=== PATIENT | male | born 1945 | race Caucasian/White ===

== ENCOUNTER 2017-07-01 19:41 | Outpatient (CLI) | payer MEDICARE | END 2017-07-01 19:42 | disposition critical access hospital (66) | LOC: EMS 19:41 | PROVIDERS: ATTEND Surgery | DX: T17.920A Food in respiratory tract, part unspecified causing asphyxiation, initial encounter (principal) | CPT/HCPCS: A0425; A0433 ==

== ENCOUNTER 2017-07-01 20:02 | Emergency (ER) | payer MEDICARE ==
[2017-07-01] MEDS ORDERED: SODIUM CHLORIDE 0.9% 1,000 ML IV ONE ×2 (20:17→21:04)
--- NOTE | 2017-07-01 20:28 | ED Physician Documentation ---
PD HPI CPR - Stated complaint Stated Complaint: CHOKING - Chief complaint Chief Complaint: Resp - History obtained from History obtained from: Family, EMS - History of Present Illness Timing - onset: How many minutes ago (30) Timing - onset during: Eating Preceding symptoms: Other (The patient does have history of some dementia but no known heart problems. His says he was eating dinner with hot dog and some [place] fries and she had told him to eat less quickly as he seemed to be eating very fast. She had stepped away for a brief time and just minute or so later heard him fall over. She went into the room and noted a lot of food in his mouth and he was unresponsive. She did clear some [place] fries from his mouth and began CPR and called EMS. The medics found some [place] fries still within his esophagus and upper pharynx. They clear that and were able to intubate him. They found him to be in asystole. IV was started and they did do epinephrine and got a return of a rhythm and give him some atropine which improved the rate. He arrived at the ER with a sinus rhythm but very low blood pressure of approximately 50 systolic. He was not making any respiratory efforts and did not need sedation. He is able to be ventilated easily without any notable airway resistance. There is no respiratory effort and no spontaneous movements.). No: Chest pain, Abdominal pain Contributing factors: Choked. No: CAD, Diabetes Recently seen: Not recently seen Witnessed: Arrest witnessed (within moments of him falling.) Fall: Fell down Bystander CPR: Bystander CPR, Downtime before CPR (1 minute) EMS findings: Apneic, Pulseless, Asystole Treatment TECHNOLOGY EDUCATION INSTRUCTOR: CPR, BVM, Intubated, Epi, Atropine, IV Advanced directive: No advanced directive Review of Systems Unable to obtain: Unresponsive, Other (informoation from ) Constitutional: denies: Fever Cardiac: denies: Chest pain / pressure Respiratory: denies: Dyspnea, Cough GI: denies: Vomiting, Diarrhea Neurologic: reports: Confused (baseline with significant dementia). 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) - Present Medications Home Medications: Ambulatory Orders Medication Instructions Recorded Confirmed Lisinopril 10 mg PO DAILY 05/31/15 03/24/16 Sertraline [Zoloft] 100 mg PO DAILY 09/15/15 03/24/16 Tamsulosin [Flomax] 0.4 mg PO DAILY 09/15/15 03/24/16 Desonide 1 applic TOP DAILY 03/24/16 03/24/16 Fluorouracil 1 applic TOP DAILY 03/24/16 03/24/16 Quetiapine Fumarate 100 mg PO BID 03/24/16 03/24/16 Timolol 0.5% Ophth Drops [Timoptic 1 drop EACHEYE DAILY 03/24/16 03/24/16 0.5% Ophth Drops] Vit D 1,000 units PO DAILY 03/24/16 03/24/16 - Allergies Allergies/Adverse Reactions: Allergies Allergy/AdvReac Type Severity Reaction Status Date / Time No Known Drug Allergies Allergy Verified 05/31/15 18:50 - Social History Does the pt smoke?: No Smoking Status: Never smoker Does the pt drink ETOH?: No Does the pt have substance abuse?: No - POLST Patient has POLST: No PD ED PE NORMAL - Vitals Vital signs reviewed: Yes - General General: Other (intubated without respiratory effort. Lungs sounds congested bilaterally. ) - HEENT HEENT: Atraumatic, Other (pupils fixed and midpoint/dilated. ) - Neck Neck: No JVD - Cardiac Cardiac: RRR (very faint sounds. Bedside U/S showing weak contractions but appear symmetric. No pericardial effusion. FAST did not show any free fluid in abdomen. ), No murmur - Respiratory Respiratory: No: Clear bilaterally (congested sounds bilaterally with bagged ventilation. ) - Abdomen Abdomen: Non distended. No: Normal bowel sounds (absent) - Male Male : Deferred - Rectal Rectal: Deferred - Derm Derm: No: Normal color (dusky color) - Extremities Extremities: No deformity, No edema - Neuro Neuro: No: Alert and oriented X 3 Results - Vitals Vitals: Vital Signs - 24 hr 07/01/17 07/01/17 07/01/17 20:07 20:34 20:35 Heart Rate 76 91 72 Respiratory 20 20 Rate Blood Pressure 76/54 L O2 Saturation 95 100 07/01/17 07/01/17 07/01/17 20:47 20:49 20:54 Heart Rate 93 94 96 Respiratory 20 16 16 Rate Blood Pressure 50/34 L 55/33 L 55/36 L O2 Saturation 100 100 99 07/01/17 07/01/17 07/01/17 21:02 21:06 21:17 Heart Rate 96 98 100 Respiratory 16 16 16 Rate Blood Pressure 63/40 L 66/44 L 63/40 L O2 Saturation 99 99 100 07/01/17 07/01/17 07/01/17 21:32 21:36 21:39 Heart Rate 102 H 105 H 106 H Respiratory 16 16 16 Rate Blood Pressure 66/43 L 62/43 L 71/49 L O2 Saturation 97 96 97 07/01/17 07/01/17 07/01/17 21:44 22:06 22:41 Heart Rate 107 H 109 H 109 H Respiratory 24 16 20 Rate Blood Pressure 76/52 L 81/60 L 85/64 L O2 Saturation 96 96 96 Oxygen O2 Source Mechanical ventilator Oxygen Flow Rate 15 - EKG (time done) 20:19 Rate: Rate (enter#) (67) Rhythm: NSR [place]: Normal Ischemia: ST elevation c/w ischemia (V1 only), ST depression (significant depressions anterolateral leads), T wave inversion Compare to prior EKG: Old EKG unavailable Computer interpretation: Agree with computer - Labs Labs: Laboratory Tests 07/01/17 07/01/17 07/01/17 20:26 20:26 20:26 WBC 6.9 RBC 3.59 L Hgb 11.1 L Hct 34.4 L MCV 95.9 H MCH 30.8 MCHC 32.2 RDW 14.2 Plt Count 239 MPV 7.7 Neut # Not Reportable Lymph # Not Reportable [place] # Not Reportable Eos # Not Reportable Baso # Not Reportable Absolute Nucleated RBC Not Reportable Band Neuts % (Manual) 4 Metamyelocytes % 1 H Neutrophils # (Manual) 4.8 Lymphocytes # (Manual) 1.9 Monocytes # (Manual) 0.1 Eosinophils # (Manual) 0.1 Nucleated RBCs Not Reportable Platelet Estimate NORMAL (130-450,000) RBC Morph Micro Appear NORMAL APPEARANCE Bld Gas Analysis Time Sample Site ABG pH ABG pCO2 ABG pO2 ABG HCO3 ABG Total CO2 ABG O2 Saturation ABG Oximetry Spot Check ABG Base Excess Donta Test Respiration Rate O2 Delivery Device Vent Mode FiO2 Tidal Volume PEEP Pressure Support Vent Sodium 143 Potassium 4.7 Chloride 112 H Carbon Dioxide 17 L Anion Gap 14.0 H BUN 15 Creatinine 1.4 H Estimated GFR (MDRD) 50 L Glucose 223 H Calcium 7.6 L Total Bilirubin 0.4 AST 39 ALT 29 Alkaline Phosphatase 59 Troponin I < 0.04 Total Protein 4.6 L Albumin 2.5 L Globulin 2.0 L Albumin/Globulin Ratio 1.2 Lipase 21 L 07/01/17 20:55 WBC RBC Hgb Hct MCV MCH MCHC RDW Plt Count MPV Neut # Lymph # [place] # Eos # Baso # Absolute Nucleated RBC Band Neuts % (Manual) Metamyelocytes % Neutrophils # (Manual) Lymphocytes # (Manual) Monocytes # (Manual) Eosinophils # (Manual) Nucleated RBCs Platelet Estimate RBC Morph Micro Appear Bld Gas Analysis Time 2108 Sample Site RIGHT RADIAL ABG pH 7.14 L* ABG pCO2 39 ABG pO2 322 H* ABG HCO3 13.1 L ABG Total CO2 14.3 L ABG O2 Saturation 99 H ABG Oximetry Spot Check 99 ABG Base Excess -15.1 L Donta Test POSITIVE Respiration Rate 16 O2 Delivery Device VENTILATOR Vent Mode SIMV FiO2 100.00 Tidal Volume 450 PEEP 5 Pressure Support Vent 10 Sodium Potassium Chloride Carbon Dioxide Anion Gap BUN Creatinine Estimated GFR (MDRD) Glucose Calcium Total Bilirubin AST ALT Alkaline Phosphatase Troponin I Total Protein Albumin Globulin Albumin/Globulin Ratio Lipase - Rads (name of study) chest Radiology: Prelim report reviewed (no focal infiltrates. ETT in adequate position. ) PD MEDICAL DECISION MAKING - ED course Complexity details: reviewed results, re-evaluated patient (Pressure is very low and started on Levophed. Also started cooling in ED. Ventilations continued. I consulted Cardiology at [facility] and had him see EKG. He did not think it prompted interventions. ), considered differential, d/w family (after discussion, the family opted to stop efforts once his son arrives.. Patient clinical outcome is going to be very poor and currently is vent/pressor dependent. ), d/w internal controls consultant (Dr. Gaston, Gas Cutting Machine Operator at [facility], who discusses with me the very poor outcome likelihood for the patient. At that point, the family was still wanting to continue intensive care. He accepted transfer. Soon after, with [employer] about to arrive, the (after talking with son on the phone) changed to not wanting to continue intensive care. The patient is needing pressor support and has not made any respiratory effort on his own. Intubated without needing sedation and has not made any movements. Pupils fixed and dilated. Clinically seems no significant brain function. ECG with marked ischemic changes. So poor clinical outcome. The /family would like to continue treatment here until the son arrives from near the [facility]. Then will presumedly discontinue rescuscitation (Pressors and ventilatory support) with expected soon demise after that. ), other (His son arrived and we all talked about current clinical condition included being ventilator dependent at this time without respiratory effort. Family is still in agreement about stopping interventions. We did not discuss organ donation for live organs as did not seem fitting with their wishes. Ventilator stopped and no respiratory effort. Pressors stopped and I extubated the patient to improve appearance The patient was on heart monitor and it showed a gradual decline in oxygenation and heart rate, with decline to asystole over about 10 minutes. Family at bedside, lights were turned down, and alarms on monitor turned off. Time of 23:54. ) - Critical Care Time(min): 60 Time Includes: Direct patient care, Reassess patient, Document care, Family consult for tx dec, See progress note Data interpretation: Labs, ABG, CXR Departure - Departure Disposition: 20 Clinical Impression: Choking episode, Cardiopulmonary arrest, Anoxic brain injury Condition: Critical Record reviewed to determine appropriate education?: Yes
[2017-07-01 20:35] LABS: RED CELL DISTRIBUTION WIDTH 14.2 % (12.0-15.0)
[2017-07-01 20:38] LABS: BASOPHILS % (AUTO) 0.3 %; EOSINOPHILS % (AUTO) 0.2 %; HCT - HEMATOCRIT 34.4 % (42.0-52.0); HGB - HEMOGLOBIN 11.1 g/dL (14.0-18.0); LYMPHOCYTES % (AUTO) 22.2 %; MEAN CORPUSCULAR HEMOGLOBIN 30.8 pg (27.0-31.0); MEAN CORPUSCULAR HGB CONC 32.2 g/dL (32.0-36.0); MEAN CORPUSCULAR VOLUME 95.9 fL (80.0-94.0); MEAN PLATELET VOLUME 7.7 fL (7.4-11.4); MONOCYTES % (AUTO) 3.7 %; NEUTROPHILS % (AUTO) 73.6 %; RED BLOOD COUNT 3.59 10^6/uL (4.70-6.10); UNCORRECTED WHITE BLOOD COUNT 6.9 x10^3/uL; WHITE BLOOD COUNT 6.9 x10^3/uL (4.8-10.8)
[2017-07-01 20:49] LABS: ALBUMIN/GLOBULIN RATIO 1.2 (1.0-2.2); BILIRUBIN,TOTAL 0.4 mg/dL (0.2-1.0); CALCIUM 7.6 mg/dL (8.5-10.3); CREATININE 1.4 mg/dL (0.6-1.2); POTASSIUM 4.7 mmol/L (3.5-5.0); TOTAL PROTEIN 4.6 g/dL (6.7-8.2)
--- NOTE | 2017-07-01 20:53 | XRAY Preliminary Report ---
Exam: XR Chest 1 View IMPRESSION: 1. ET tube about 6 cm from the carmencita. 2. Distended air filled stomach noted. [facility] SITE ID: [id number]
--- NOTE | 2017-07-01 20:55 | XRAY Report ---
EXAM: CHEST RADIOGRAPHY EXAM DATE: 07/01/2017 08:24 PM. CLINICAL HISTORY: Intubated. Post arrest. Choking episode. COMPARISON: None. TECHNIQUE: 1 view. FINDINGS: Lungs/Pleura: No focal opacities evident. No right pleural effusion. Left costophrenic angle off the film. No pneumothorax. Mediastinum: Within exam limitations, cardiomediastinal contour is normal. Other: ET tube about 6 cm from the carmencita. Distended air filled stomach noted. No fractures identifie d. IMPRESSION: 1. ET tube about 6 cm from the carmencita. 2. Distended air filled stomach noted. [facility] Referring Provider Line: [phone] SITE ID: [id number]
[2017-07-01] MEDS: SODIUM CHLORIDE 0.9% 1,000 ML IV ONE ×2 (21:03→21:05)
[2017-07-01] MEDS ORDERED: SODIUM BICARBONATE ABBOJECT 50 MEQ/50 ML SYRINGE IVP STA (21:07)
[2017-07-01 21:09] LABS: BAND NEUTROPHILS % (MANUAL) 4 %; EOSINOPHILS % (MANUAL) 1 %; LYMPHOCYTES % (MANUAL) 27 %; NEUTROPHILS % (MANUAL) 65 %
[2017-07-01 21:10] LABS: NP AUTO DIFFERENTIAL? YES; NP MAN DIFFERENTIAL? NO; PLATELET ESTIMATE, MANUAL NORMAL (130-450,000) (NORMAL)
[2017-07-01] MEDS ORDERED: SODIUM BICARBONATE ABBOJECT 50 MEQ/50 ML SYRINGE ONE (22:07)
[2017-07-01 22:22] LABS: ABG ANALYSIS TIME 2108; ABG BASE EXCESS -15.1 mmol/L (-2.0-3.0); ABG HCO3 13.1 mmol/L (22.0-26.0); ABG OXYGEN SATURATION 99 % (94-98); ABG PCO2 39 mmHg (34-45); ABG TCO2 14.3 MMOL/L (21.0-29.0)
[2017-07-01 22:23] LABS: ABG MODE OF VENTILATION SIMV; ABG O2 DEVICE VENTILATOR; ABG PEAK END EXPIRATORY PRESSU 5 cmH2O; ABG PRESSURE SUPPORT VENT 10 cmH2O; ABG RESPIRATORY RATE 16 b/min; ABG SATURATION PULSE OXIMETRY% 99 %; ABG SITE OF DRAW RIGHT RADIAL; ALLEN TEST POSITIVE
[2017-07-01 22:25] LABS: ABG PH 7.14 (7.35-7.45); ABG PO2 322 mmHg (80-100)
[2017-07-01 22:42] VITALS: BP 85/64
== END 2017-07-01 23:54 | disposition expired ==
LOC: EDUNIT# → EDBD → ED 20:02
DX: T17.920A Food in respiratory tract, part unspecified causing asphyxiation, initial encounter (principal); X58.XXXA Exposure to other specified factors, initial encounter; Y93.89 Activity, other specified; I46.8 Cardiac arrest due to other underlying condition; G93.1 Anoxic brain damage, not elsewhere classified; Z99.11 Dependence on respirator [ventilator] status; I10 Essential (primary) hypertension; F03.90 Unspecified dementia, unspecified severity, without behavioral disturbance, psychotic disturbance, mood disturbance, and anxiety
CPT/HCPCS: 36415; 36600; 51702; 71010; 80053; 82803; 83690; 84484; 85025; 93005; 94002; 94770; 96361; 96374; 99285; 99291